=== PATIENT | female | born 1985 | race Caucasian/White ===

== ENCOUNTER 2016-08-02 17:36 | Emergency (ER) | payer SELFPAY ==
[~2016-08-02] VITALS: Ht 165.1 cm; Wt 53.1 kg
[~2016-08-02 17:36] MED LIST: NORE1TAB9 PO; SERT50TA PO
[2016-08-02 17:40] VITALS: BP_SYST 134
[2016-08-02] MEDS ORDERED: HYDROmorphone 1 MG INJ. 1 MG/ML AMPUL IM ONE (18:30)
[2016-08-02] MEDS ORDERED: ONDANSETRON HCL 4 MG/2 ML VIAL IM ONE (18:30)
[2016-08-02 18:50] VITALS: BP_SYST 127
== END 2016-08-02 18:50 | disposition home or self-care (01) ==
LOC: SED 17:36
DX: M79.7 Fibromyalgia (principal); F41.9 Anxiety disorder, unspecified; Z88.1 Allergy status to other antibiotic agents; Z88.8 Allergy status to other drugs, medicaments and biological substances
CPT/HCPCS: 96372; 99284; J1170; J2405

== ENCOUNTER 2019-12-21 20:00 | Emergency (ER) | payer OTHER ==
[~2019-12-21] VITALS: Ht 165.1 cm; Wt 60.3 kg
[2019-12-21 20:08] VITALS: BP_SYST 151
--- NOTE | 2019-12-21 20:12 | NUR ---
Patient to ER bed 06 to gown for evaluation. Side rails up.
--- NOTE | 2019-12-21 21:00 | NUR ---
Dr. Santizo bedside for pt eval
[2019-12-21] MEDS ORDERED: KETOROLAC TROMETHAMINE 30 MG VIAL IM ONE (21:15)
[2019-12-21] MEDS ORDERED: DIAZEPAM 5 MG TABLET (VALIUM) PO ONE (21:15)
--- NOTE | 2019-12-21 21:15 | NUR ---
Pt BIB family to ED C/O right hand dominant, presenting for back pain that radiates from the occiput down to L2-3 with associated right arm numbness and tingling down to the fingers, constant in the 4th and 5th digits. Pt stated " Work related " Dr. Santizo aware. VSS no s/s of acute distress Resting on [employer] rails up
[2019-12-21 21:40] VITALS: BP_SYST 128
--- NOTE | 2019-12-21 21:40 | NUR ---
Patient given written and verbal discharge instructions and verbalizes understanding. ER MD discussed with patient the results and treatment provided. Patient in stable condition. ID arm band removed. Rx of Valium and [place] given. Patient educated on pain management and to follow up with PMD. Pain Scale 0/10 Opportunity for questions provided and answered. Medication side effect fact sheet provided.
== END 2019-12-21 21:40 | disposition home or self-care (01) ==
LOC: SED 20:00
DX: S39.012A Strain of muscle, fascia and tendon of lower back, initial encounter (principal); F41.9 Anxiety disorder, unspecified; Z88.1 Allergy status to other antibiotic agents; X50.3XXA Overexertion from repetitive movements, initial encounter; Y93.89 Activity, other specified; Y92.89 Other specified places as the place of occurrence of the external cause; Y99.8 Other external cause status
CPT/HCPCS: 96372; 99283; J1885

== ENCOUNTER 2020-02-09 19:23 | Emergency (ER) | payer OTHER ==
[~2020-02-09] VITALS: Ht 167.6 cm; Wt 60.3 kg
[2020-02-09] MEDS ORDERED: IBUPROFEN 600 MG TABLET PO ONE (20:00)
[2020-02-09 20:39] VITALS: BP_SYST 145
[2020-02-09] MEDS ORDERED: KETOROLAC TROMETHAMINE 60 MG/2 ML VIAL IM ONE ×2 (20:45→20:51)
[2020-02-09 21:00] VITALS: BP_SYST 145
== END 2020-02-09 21:00 | disposition home or self-care (01) ==
LOC: SED 19:23
DX: S39.012A Strain of muscle, fascia and tendon of lower back, initial encounter (principal); S29.012A Strain of muscle and tendon of back wall of thorax, initial encounter; F41.9 Anxiety disorder, unspecified; Z88.1 Allergy status to other antibiotic agents; V49.9XXA Car occupant (driver) (passenger) injured in unspecified traffic accident, initial encounter; Y93.89 Activity, other specified; Y92.89 Other specified places as the place of occurrence of the external cause; Y99.8 Other external cause status
CPT/HCPCS: 81002; 81025; 99283; J1885